=== PATIENT | male | born 2000 | race Caucasian/White ===

== ENCOUNTER 2022-07-09 22:23 | Emergency (ER) | payer SELFPAY ==
[~2022-07-09] VITALS: Ht 175.3 cm; Wt 90.0 kg
[2022-07-09] MEDS ORDERED: SODIUM CHLORIDE 0.9% 1,000 ML IV ONE ×2 (23:15)
[2022-07-10 00:05] LABS: HEMATOCRIT. 41.8 % (42.0-52.0); HEMOGLOBIN. 14.1 g/dL (14.0-18.0); MEAN CORPUSCULAR HEMOGLOBIN 29.1 pg (28.0-32.0); MEAN CORPUSCULAR VOLUME 86.2 fL (80.0-94.0); MEAN PLATELET VOLUME 7.4 fl (7.4-10.4); PLATELET 291 x1000/uL (130-400); RED BLOOD CELL COUNT 4.85 mill/uL (4.7-6.1); RED CELL DISTRIBUTION WIDTH 13.2 % (11.6-14.6)
[2022-07-10 00:09] LABS: CHLORIDE 102 mEq/L (98-107)
[2022-07-10 00:20] LABS: ETHANOL BLOOD 186 mg/dL
[2022-07-10 01:30] VITALS: BP 111/60
[2022-07-10 01:45] LABS: PLATELET ESTIMATE NORMAL
== END 2022-07-10 02:18 | disposition home or self-care (01) ==
LOC: ER 22:23
DX: I95.9 Hypotension, unspecified (principal); F10.129 Alcohol abuse with intoxication, unspecified; Y90.6 Blood alcohol level of 120-199 mg/100 ml; R11.2 Nausea with vomiting, unspecified
CPT/HCPCS: 36415; 71045; 80053; 80320; 83880; 84484; 85025; 93005; 99285; J7030; G0480